=== PATIENT | male | born 1990 | race Caucasian/White ===

== ENCOUNTER 2019-07-12 21:50 | Emergency (ER) | payer SELFPAY, OTHER ==
[2019-07-12] MEDS: DEXAMETHASONE 10 MG/ML 1 ML INJ IM (23:14)
[2019-07-12] MEDS: KETOROLAC 30 MG INJ IM (23:14)
== END 2019-07-13 00:40 | disposition home or self-care (01) ==
LOC: FTE 21:50
DX: M54.5 Low back pain (principal)
CPT/HCPCS: 72100; 96372; 99284-25